=== PATIENT | female | born 1985 | race Caucasian/White ===

== ENCOUNTER 2019-09-17 11:48 | Emergency (ER) | payer BC ==
--- NOTE | 2019-09-17 11:54 | EDM.PDOC ---
ED HPI GENERAL MEDICAL PROBLEM - General Chief Complaint: DATA REPORT ANALYST Problem Stated Complaint: 6-8 WEEKS PREGANNT/BLEEDING/ ABD CRAMPING Time Seen by Provider: 09/17/19 11:50 Source of Information: Reports: Patient History Limitations: Reports: No Limitations - History of Present Illness INITIAL COMMENTS - FREE TEXT/NARRATIVE: HISTORY AND PHYSICAL: History of present illness: Patient is a 34-year-old female who presents to the emergency room today with complaints of vaginal bleeding in . She reports that she has had some irregular periods, last one being June 2018. She did have a confirmed with Dr. Hamilton, and was scheduled to have an ultrasound next week. Over the past 2 days she has had some vaginal bleeding, progressively becoming heavier in the past 24 hours. She does has some generalized low abdominal cramping/discomfort. Patient denies any fever, chills, headache, change in vision, syncope or near syncope. Denies any chest pain, back pain, shortness of breath or cough. Denies any nausea, vomiting, diarrhea, constipation or dysuria. Has not noted any blood in urine or stool. Patient has been eating and drinking appropriately. Denies any recent sexual activity or trauma. 1, Para 0. Review of systems: As per history of present illness and below otherwise all systems reviewed and negative. Past medical history: As per history of present illness and as reviewed below otherwise noncontributory. Surgical history: As per history of present illness and as reviewed below otherwise noncontributory. Social history: See social history for further information Family history: As per history of present illness and as reviewed below otherwise noncontributory. Physical exam: General: Well-developed and well-nourished 34-year-old female. Alert and oriented. Nontoxic appearing and in no acute distress. HEENT: Atraumatic, normocephalic, pupils equal and reactive bilaterally, negative for conjunctival pallor or scleral icterus, mucous membranes moist, neck supple, nontender, trachea midline. No drooling or trismus noted. No meningeal signs. No hot potato voice noted. Lungs: Clear to auscultation, breath sounds equal bilaterally, chest nontender. Heart: S1S2, regular rate and rhythm without overt murmur Abdomen: Soft, nondistended, mild LLQ tenderness with palpation. Negative for masses or hepatosplenomegaly. Negative for costovertebral tenderness. Pelvis: Stable nontender. Skin: Intact, warm, dry. No lesions or rashes noted. Extremities: Atraumatic, moves all extremities per self without difficulty or deficits, negative for cords or calf pain. Neurovascular unremarkable. Neuro: Awake, alert, oriented. Cranial nerves II through XII unremarkable. Cerebellum unremarkable. Motor and sensory unremarkable throughout. Exam nonfocal. Notes: Ultrasound shows a single IUP with a heart rate of 154. No subchorionic hemorrhage is appreciated. Gestational Age 13 weeks 3 days. Lab work is unremarkable with the exception of early sign of UTI, culture has been added. We 'll treat with Keflex. We discussed the importance of following up with her OB/ AGRICULTURE SCIENTIST for reevaluation of vaginal bleeding in . Supportive care measures were reviewed and discussed. Voices understanding and is agreeable to plan of care. Denies any further questions or concerns at this time. Diagnostics: CBC, Quant HCG, 1st Trimester OB, UA Therapeutics: None Prescription: Keflex Impression: Threatened Miscarriage UTI Plan: 1. Please start and/or continue to take your vitamin with folic acid once daily. 2. Pelvic rest until cleared by your OBGYN (no tampons, sex, etc...) 3. Tylenol as needed for pain management. 4. Follow up with your DATA REPORT ANALYST, Dr Clark, for close follow up. Return to the ED as needed and as discussed. Definitive disposition and diagnosis as appropriate pending reevaluation and review of above. - Related Data Allergies Allergy/AdvReac Type Severity Reaction Status Date / Time bupropion HCl Allergy Swelling Verified 09/17/19 11:59 [From Wellbutrin] cinnamon Allergy Facial Verified 09/17/19 11:59 Swelling Home Meds: Home Meds Dextroamphetamine/Amphetamine [Dextroamp-Amphet ER 20 mg Cap] 1 tab PO DAILY 03/31 [History] cephALEXin [Keflex] 500 mg PO BID 5 Days #10 cap 09/17/19 [Rx] Past Medical History - Past Health History Medical/Surgical History: Denies Medical/Surgical History - Infectious Disease History Infectious Disease History: Reports: Chicken Pox Social & Family History - Family History Family Medical History: Noncontributory ED ROS GENERAL - Review of Systems Review Of Systems: Comprehensive ROS is negative, except as noted in HPI. ED EXAM - Physical Exam Exam: See Below (See dictation) Course - Vital Signs Last Recorded V/S: Last Vital Signs Temp 97.8 F 09/17/19 11:58 Pulse 104 H 09/17/19 11:58 Resp 18 09/17/19 11:58 BP 141/87 H 09/17/19 11:58 Pulse Ox 99 09/17/19 11:58 - Orders/Labs/Meds Labs: Laboratory Tests 09/17/19 09/17/19 09/17/19 Range/Units 12:05 13:15 13:15 WBC 10.51 (4.0-11.0) K/uL RBC 4.03 L (4.30-5.90) M/uL Hgb 12.4 (12.0-16.0) g/dL Hct 36.4 (36.0-46.0) % MCV 90.3 (80.0-98.0) fL MCH 30.8 (27.0-32.0) pg MCHC 34.1 (31.0-37.0) g/dL RDW Std Deviation 39.2 (28.0-62.0) fl RDW Coeff of Isabel 12 (11.0-15.0) % Plt Count 321 (150-400) K/uL MPV 8.70 (7.40-12.00) fL Neut % (Auto) 75.5 (48.0-80.0) % Lymph % (Auto) 18.8 (16.0-40.0) % [place] % (Auto) 4.9 (0.0-15.0) % Eos % (Auto) 0.6 (0.0-7.0) % Baso % (Auto) 0.2 (0.0-1.5) % Neut # (Auto) 7.9 H (1.4-5.7) K/uL Lymph # (Auto) 2.0 (0.6-2.4) K/uL [place] # (Auto) 0.5 (0.0-0.8) K/uL Eos # (Auto) 0.1 (0.0-0.7) K/uL Baso # (Auto) 0.0 (0.0-0.1) K/uL Nucleated RBC % 0.0 /100WBC Nucleated RBCs # 0 K/uL HCG, Quant mIU/mL Urine Color YELLOW Urine Appearance CLEAR Urine pH 7.0 (5.0-8.0) Ur Specific Hamilton 1.015 (1.001-1.035) Urine Protein NEGATIVE (NEGATIVE) mg/dL Urine Glucose (UA) NEGATIVE (NEGATIVE) mg/dL Urine Ketones NEGATIVE (NEGATIVE) mg/dL Urine Occult Blood NEGATIVE (NEGATIVE) Urine Nitrite NEGATIVE (NEGATIVE) Urine Bilirubin NEGATIVE (NEGATIVE) Urine Urobilinogen 0.2 (<2.0) EU/dL Ur Leukocyte Esterase NEGATIVE (NEGATIVE) Urine RBC NONE SEEN (0-2/HPF) Urine WBC 0-2 (0-5/HPF) Ur Epithelial Cells OCCASIONAL (NONE-FEW) Urine Bacteria 1+ H (NEGATIVE) Blood Type B POSITIVE 09/17/19 Range/Units 13:15 WBC (4.0-11.0) K/uL RBC (4.30-5.90) M/uL Hgb (12.0-16.0) g/dL Hct (36.0-46.0) % MCV (80.0-98.0) fL MCH (27.0-32.0) pg MCHC (31.0-37.0) g/dL RDW Std Deviation (28.0-62.0) fl RDW Coeff of Isabel (11.0-15.0) % Plt Count (150-400) K/uL MPV (7.40-12.00) fL Neut % (Auto) (48.0-80.0) % Lymph % (Auto) (16.0-40.0) % Raleigh % (Auto) (0.0-15.0) % Eos % (Auto) (0.0-7.0) % Baso % (Auto) (0.0-1.5) % Neut # (Auto) (1.4-5.7) K/uL Lymph # (Auto) (0.6-2.4) K/uL Raleigh # (Auto) (0.0-0.8) K/uL Eos # (Auto) (0.0-0.7) K/uL Baso # (Auto) (0.0-0.1) K/uL Nucleated RBC % /100WBC Nucleated RBCs # K/uL HCG, Quant 75771.0 mIU/mL Urine Color Urine Appearance Urine pH (5.0-8.0) Ur Specific Hamilton (1.001-1.035) Urine Protein (NEGATIVE) mg/dL Urine Glucose (UA) (NEGATIVE) mg/dL Urine Ketones (NEGATIVE) mg/dL Urine Occult Blood (NEGATIVE) Urine Nitrite (NEGATIVE) Urine Bilirubin (NEGATIVE) Urine Urobilinogen (<2.0) EU/dL Ur Leukocyte Esterase (NEGATIVE) Urine RBC (0-2/HPF) Urine WBC (0-5/HPF) Ur Epithelial Cells (NONE-FEW) Urine Bacteria (NEGATIVE) Blood Type Departure - Departure Time of Disposition: 14:20 Disposition: Home, Self-Care 01 Clinical Impression: Threatened miscarriage UTI (urinary tract infection) Qualifiers: Urinary tract infection type: acute cystitis Hematuria presence: without hematuria Qualified Code(s): N30.00 - Acute cystitis without hematuria - Discharge Information Prescriptions: cephALEXin [Keflex] 500 mg PO BID 5 Days #10 cap Instructions: Threatened Miscarriage, [id number] Referrals: Sultana Schultz DO [Primary Care Provider] - Forms: ED Department Discharge Additional Instructions: The following information is given to patients seen in the emergency department who are being discharged to home. This information is to outline your options for follow-up care. We provide all patients seen in our emergency department with a follow-up referral. The need for follow-up, as well as the timing and circumstances, are variable depending upon the specifics of your emergency department visit. If you don't have a primary care physician on staff, we will provide you with a referral. We always advise you to contact your personal physician following an emergency department visit to inform them of the circumstance of the visit and for follow-up with them and/or the need for any referrals to a consulting specialist. The emergency department will also refer you to a specialist when appropriate. This referral assures that you have the opportunity for follow-up care with a specialist. All of these measure are taken in an effort to provide you with optimal care, which includes your follow-up. Under all circumstances we always encourage you to contact your private physician who remains a resource for coordinating your care. When calling for follow-up care, please make the office aware that this follow-up is from your recent emergency room visit. If for any reason you are refused follow-up, please contact the [facility] Emergency Department at and asked to speak to the emergency department charge nurse. [facility] [address] [place] [address] 1. Please start and/or continue to take your vitamin with folic acid once daily. 2. Pelvic rest until cleared by your OBGYN (no tampons, sex, etc...) 3. Tylenol as needed for pain management. 4. Follow up with your DATA REPORT ANALYST, Dr Clark, for close follow up. Return to the ED as needed and as discussed.
[2019-09-17 12:00] VITALS: BP 141/87; PULSE 104
--- NOTE | 2019-09-17 13:21 | US ---
Obstetrical ultrasound: Multiple real-time images were obtained transabdominally. Transvaginal images of cervix are also obtained. Dates: Current ultrasound: BHAVESH 04/15/20, gestational age 13 weeks 3 days Single intrauterine fetus is seen. Amniotic fluid volume is normal. No subchorionic hemorrhage is appreciated. Left ovary appears normal. Right ovary not definitely appreciated. Measurements: [place]-rump length: 68.97 mm - 13 weeks 1 day BPD: 2.10 cm - 13 weeks 3 days Head circumference: 8.44 cm - 13 weeks 5 days Abdominal circumference: 6.86 cm - 13 weeks 4 days Estimated weight: 72 g (0 lbs. 3 oz.) Heart rate: 152 BPM Cervix is closed. Cervical length is 3.0 cm. Impression: 1. Single intrauterine gestation. Dates as noted above. 2. No etiology is identified for the patient's bleeding. Diagnostic code #1 This report was dictated in [place] Standard Time [facility]
== END 2019-09-17 14:31 | disposition home or self-care (01) ==
LOC: MW.ED 11:48
DX: O20.0 Threatened abortion (principal); O23.11 Infections of bladder in pregnancy, first trimester; Z88.8 Allergy status to other drugs, medicaments and biological substances; Z91.018 Allergy to other foods
CPT/HCPCS: 36415; 76801; 76801-26; 81001; 84702; 85025; 86900; 86901; 99283; 99284-25

== ENCOUNTER 2020-03-06 08:14 | Inpatient (IN) | payer BC ==
[2020-03-06] MEDS ORDERED: Methylergonovine 0.2 MG/1 ML Amp IM PRN (09:01)
[2020-03-06] MEDS ORDERED: Sodium Chloride 0.9% 2.5 ML Syringe FLUSH PRN (09:01)
[2020-03-06] MEDS ORDERED: Lidocaine 1% 50 ML MDV INJECT PRN (09:01)
[2020-03-06] MEDS ORDERED: Carboprost Tromethamine 250 MCG/1 ML Amp IM PRN (09:01)
[2020-03-06] MEDS ORDERED: Butorphanol 1 MG/ML SDV IVPUSH PRN (09:01)
[2020-03-06] MEDS ORDERED: Sodium Chloride 0.9% 10 ML SDV IV PRN (09:01)
[2020-03-06] MEDS ORDERED: Tranexamic Acid 1,000 MG in Sodium Chloride 0.9% 100 ML IV PRN (09:01)
[2020-03-06] MEDS ORDERED: Nalbuphine 10 MG/1 ML Vial IVPUSH PRN (09:01)
[2020-03-06] MEDS ORDERED: Water For Irrigation,Sterile 1,000 ML Container IRR PRN (09:01)
[2020-03-06] MEDS ORDERED: Sodium Chloride 0.9% 10 ML Syringe FLUSH PRN (09:01)
[2020-03-06] MEDS ORDERED: Misoprostol 200 MCG Tab PO PRN (09:01)
[2020-03-06] MEDS ORDERED: Oxytocin/0.9 % Sodium Chloride 30 UNIT/500 ML BAG IV SCH (09:15)
[2020-03-06 09:47] LABS: BLOOD UREA NITROGEN,BUN 8 mg/dL (7.0-18.0); CARBON DIOXIDE,CO2 21.6 mmol/L (21.0-32.0); CHLORIDE,CL 105 mmol/L (98-107); GLUCOSE RANDOM 103 mg/dL (74-106); POTASSIUM,K 4.1 mmol/L (3.5-5.1); SODIUM,NA 137 mmol/L (136-145)
[2020-03-06] MEDS ORDERED: Dinoprostone 10 MG Insert VAG ONE (13:18)
[2020-03-07] MEDS: Lactated Ringers 1,000 ML IV SCH ×5 (02:02→17:32)
[2020-03-07] MEDS ORDERED: fentaNYL/Bupivacaine-NS 2 MCG/ML-0.125%/PF 100 ML Bag EPIDUR ONE (02:58)
[2020-03-07] MEDS ORDERED: Ropivacaine 0.2% PF 2 MG/ML 20 ML SDV ONE (02:58)
[2020-03-07] MEDS ORDERED: Oxytocin/0.9 % Sodium Chloride 30 UNIT/500 ML BAG IV SCH (03:30)
--- NOTE | 2020-03-07 03:35 | PCM.PREANE ---
Preanesthetic Assessment - Procedure Proposed Procedure: labor epidural - Anesthesia/Transfusion/Family Hx Anesthesia History: Prior Anesthesia Without Reaction Family History of Anesthesia Reaction: No Transfusion History: No Prior Transfusion(s) - Review of Systems General: No Symptoms Pulmonary: No Symptoms Cardiovascular: No Symptoms Gastrointestinal: No Symptoms Neurological: No Symptoms Other: Reports: None - Physical Assessment Height: 5 ft 3 in Weight: 86.183 kg ASA Class: 2 Mental Status: Alert & Oriented x3 Airway Class: Mallampati = 1 Dentition: Reports: Normal Dentition ROM/Head Extension: Full Lungs: Clear to Auscultation, Normal Respiratory Effort Cardiovascular: Regular Rate, Regular Rhythm - Lab Values: Laboratory Last Values WBC 12.60 K/uL (4.0-11.0) H 03/06/20 09:10 RBC 4.06 M/uL (4.30-5.90) L 03/06/20 09:10 Hgb 12.2 g/dL (12.0-16.0) 03/06/20 09:10 Hct 37.0 % (36.0-46.0) 03/06/20 09:10 MCV 91.1 fL (80.0-98.0) 03/06/20 09:10 MCH 30.0 pg (27.0-32.0) 03/06/20 09:10 MCHC 33.0 g/dL (31.0-37.0) 03/06/20 09:10 RDW Std Deviation 42.6 fl (28.0-62.0) 03/06/20 09:10 RDW Coeff of Isabel 13 % (11.0-15.0) 03/06/20 09:10 Plt Count 260 K/uL (150-400) 03/06/20 09:10 MPV 10.10 fL (7.40-12.00) 03/06/20 09:10 Nucleated RBC % 0.0 /100WBC 03/06/20 09:10 Nucleated RBCs # 0 K/uL 03/06/20 09:10 Sodium 137 mmol/L (136-145) 03/06/20 09:10 Potassium 4.1 mmol/L (3.5-5.1) 03/06/20 09:10 Chloride 105 mmol/L (98-107) 03/06/20 09:10 Carbon Dioxide 21.6 mmol/L (21.0-32.0) 03/06/20 09:10 BUN 8 mg/dL (7.0-18.0) 03/06/20 09:10 Creatinine 0.7 mg/dL (0.6-1.0) 03/06/20 09:10 Est Cr Clr Drug Dosing 91.91 mL/min 03/06/20 09:10 Estimated GFR (MDRD) > 60.0 ml/min 03/06/20 09:10 Glucose 103 mg/dL (74-106) 03/06/20 09:10 Uric Acid 5.3 mg/dL (2.6-7.2) 03/06/20 09:10 Calcium 8.1 mg/dL (8.5-10.1) L 03/06/20 09:10 Total Bilirubin 0.2 mg/dL (0.2-1.0) 03/06/20 09:10 AST 16 IU/L (15-37) 03/06/20 09:10 ALT 19 IU/L (14-63) 03/06/20 09:10 Alkaline Phosphatase 117 U/L (46-116) H 03/06/20 09:10 Total Protein 6.2 g/dL (6.4-8.2) L 03/06/20 09:10 Albumin 2.5 g/dL (3.4-5.0) L 03/06/20 09:10 Globulin 3.7 g/dL (2.6-4.0) 03/06/20 09:10 Albumin/Globulin Ratio 0.7 (0.9-1.6) L 03/06/20 09:10 Urine Color YELLOW 03/06/20 09:45 Urine Appearance SLT CLOUDY 03/06/20 09:45 Urine pH 6.5 (5.0-8.0) 03/06/20 09:45 Ur Specific Omar 1.020 (1.001-1.035) 03/06/20 09:45 Urine Protein NEGATIVE mg/dL (NEGATIVE) 03/06/20 09:45 Urine Glucose (UA) NEGATIVE mg/dL (NEGATIVE) 03/06/20 09:45 Urine Ketones NEGATIVE mg/dL (NEGATIVE) 03/06/20 09:45 Urine Occult Blood LARGE (NEGATIVE) H 03/06/20 09:45 Urine Nitrite NEGATIVE (NEGATIVE) 03/06/20 09:45 Urine Bilirubin NEGATIVE (NEGATIVE) 03/06/20 09:45 Urine Urobilinogen 0.2 EU/dL (<2.0) 03/06/20 09:45 Ur Leukocyte Esterase NEGATIVE (NEGATIVE) 03/06/20 09:45 Ur Random Creatinine 128.7 mg/dL 03/06/20 09:45 U Random Total Protein 30.9 mg/dL (<11.9) H 03/06/20 09:45 Protein/Creatinin Ratio 0.2 03/06/20 09:45 Membrane Rupture POSITIVE 03/06/20 13:10 Blood Type B POSITIVE 03/06/20 09:40 Antibody Screen NEGATIVE 03/06/20 09:40 - Allergies Allergies/Adverse Reactions: Allergies Allergy/AdvReac Type Severity Reaction Status Date / Time bupropion HCl Allergy Swelling Verified 02/21/20 11:03 [From Wellbutrin] cinnamon Allergy Facial Verified 02/21/20 11:03 Swelling - Blood Blood Available: Yes Product(s) Available: PRBC - Acknowledgements Anesthesia Type Planned: Epidural Pt an Appropriate Candidate for the Planned Anesthesia: Yes Alternatives and Risks of Anesthesia Discussed w Pt/Guardian: Yes Pt/Guardian Understands and Agrees with Anesthesia Plan: Yes PreAnesthesia Questionnaire - Past Health History Medical/Surgical History: Denies Medical/Surgical History Genitourinary History: Reports: UTI, Recurrent VEGETABLE GRADER History: Reports: , Other (See Below) Other OB/BYN History: HPV Psychiatric History: Reports: ADD, ADHD, Anxiety - Infectious Disease History Infectious Disease History: Reports: Chicken Pox - Past Surgical History HEENT Surgical History: Reports: LASIK, Oral Surgery - SUBSTANCE USE Smoking Status *Q: Never Smoker Tobacco Use Within Last Twelve Months: No Second Hand Smoke Exposure: No Recreational Drug Use History: No - HOME MEDS Home Medications: Home Meds Pnv No.95/Ferrous Fum/Folic AC [ Caplet] 1 each PO DAILY 03/06/20 [ History] - CURRENT (IN HOUSE) MEDS Current Meds: Current Medications Butorphanol Tartrate (Stadol) 1 mg IVPUSH Q1H PRN PRN Reason: Pain Last Admin: 03/06/20 23:45 Dose: 1 mg Carboprost Tromethamine (Hemabate Ds) 250 mcg IM ASDIRECTED PRN PRN Reason: Post Hemorrhage Tranexamic Acid 1,000 mg/ (Sodium Chloride) 110 mls @ 660 mls/hr IV ONETIME PRN PRN Reason: Bleeding Lactated Ringer's (Ringers, Lactated) 1,000 mls @ 150 mls/hr IV ASDIRECTED JAIME Last Infusion: 03/07/20 03:21 Dose: 150 mls/hr Oxytocin/Sodium Chloride (Oxytocin 30 Unit/500 Ml-Ns) 30 unit in 500 mls @ 999 mls/hr IV TITRATE JAIME Oxytocin/Sodium Chloride (Oxytocin 30 Unit/500 Ml-Ns) 30 unit in 500 mls @ 2 mls/hr IV TITRATE JAIME; Protocol Lidocaine HCl (Xylocaine 1%) 50 ml INJECT ONETIME PRN PRN Reason: Laceration repair Methylergonovine Maleate (Methergine) 0.2 mg IM ASDIRECTED PRN PRN Reason: Post Hemorrhage Misoprostol (Cytotec) 200 mcg PO ONETIME PRN PRN Reason: Post Hemorrhage Nalbuphine HCl (Nubain) 10 mg IVPUSH Q1H PRN PRN Reason: Pain (severe 7-10) Sodium Chloride (Saline Flush) 10 ml FLUSH ASDIRECTED PRN PRN Reason: Keep Vein Open Sodium Chloride (Saline Flush) 2.5 ml FLUSH ASDIRECTED PRN PRN Reason: Keep Vein Open Sodium Chloride (Normal Saline) 10 ml IV ASDIRECTED PRN PRN Reason: IV Use Sterile Water (Sterile Water For Irrigation) 1,000 ml IRR ASDIRECTED PRN PRN Reason: delivery Discontinued Medications Dinoprostone (Cervidil) 10 mg VAG ONETIME ONE Stop: 03/06/20 13:19 Last Admin: 03/06/20 13:34 Dose: 10 mg Ropivacaine (Naropin 0.2%) Confirm Administered Dose 20 ml .ROUTE .STK-MED ONE Stop: 03/07/20 02:59 Last Admin: 03/07/20 03:31 Dose: Not Given
[2020-03-07] MEDS ORDERED: ePHEDrine 50 MG/ML SDV ONE (03:46)
--- NOTE | 2020-03-07 14:50 | PCM.SN.2 ---
- Free Text/Narrative Note: 03/07/2020 at 1352: Called to OB LDR 1 for labor epidural pump infusion bag empty. Replaced infusion with new 0.125% Bupivacaine + Fentanyl 2mcg/ml 100 ml bag and continued previous settings of 8 ml per hour continuous infusion and 6 ml bolus every 10 minutes One hour lock out rate is 26 ml/hour. Patient currently dilated to 2cm, comfortable, and is able to move both legs without issues. No further issues or concerns at this time.
[2020-03-07] MEDS ORDERED: Ondansetron 4 MG/2 ML SDV ONE (18:12)
[2020-03-07] MEDS ORDERED: Morphine 4 MG/ML Syringe ONE (20:17)
[2020-03-07] MEDS ORDERED: Morphine 2 MG/ML Syringe ONE (20:17)
[2020-03-07] MEDS ORDERED: Morphine 10 MG/ML Syringe IM ONE (20:20)
[2020-03-07] MEDS ORDERED: Bisacodyl 10 MG Supp RECTAL PRN (20:51)
[2020-03-07] MEDS ORDERED: Acetaminophen 500 MG Tab PO PRN ×2 (20:51)
[2020-03-07] MEDS ORDERED: Ibuprofen 400 MG Tab PO PRN (20:51)
[2020-03-07] MEDS ORDERED: Witch Hazel Medicated Pads 40/Jar TOP PRN (20:51)
[2020-03-07] MEDS ORDERED: oxyCODONE 5 MG Tab PO PRN (20:51)
[2020-03-07] MEDS ORDERED: Benzocaine/Menthol 20%-0.5% Spray 78 GM Cannister TOP PRN (20:51)
[2020-03-07] MEDS ORDERED: Lanolin 100% Cream 7 GM Tube TOP PRN (20:51)
--- NOTE | 2020-03-07 21:07 | PCM.DEL ---
L & D Note - General Info Date of Service: 03/07/20 Mother's Due Date: 03/23/20 - Delivery Note Labor: Augmented by Oxytocin Cervical Ripening Method: Other (see below) (cervidil) Delivery Outcome: Livebirth Infant Delivery Method: Spontaneous Vaginal Delivery-Single Presentation: Left Occiput Anterior (JANELLE) Nuchal Cord: None Anesthesia Type: Epidural Anesthetic: Lidocaine (Xylocaine) 1% Plain Amniotic Fluid Description: Clear Episiotomy Type: None Laceration: 1st Degree, Periurethral Suture type: Other (monocryl) Suture size: 2-0 Cord: 3 Vessels Estimated Blood Loss: 200 Resuscitation Needed: No Score 1 min: 8 Score 5 min: 9 Delivery Comments (Free Text/Narrative):: Live male delivered at 7.57pm . weight 3060g , 8/9 - General Info Date of Service: 03/07/20 - Patient Data Weight - Most Recent: 86.183 kg Med Orders - Current: Current Medications Acetaminophen (Tylenol Extra Strength) 500 mg PO Q4H PRN PRN Reason: Pain Acetaminophen (Tylenol Extra Strength) 1,000 mg PO Q4H PRN PRN Reason: Pain Benzocaine/Menthol (Dermoplast Pain Relief 20%-0.5% Fleming) 78 gm TOP ASDIRECTED PRN PRN Reason: Perineal Comfort Measure Bisacodyl (Dulcolax) 10 mg RECTAL ONETIME PRN PRN Reason: Constipation Butorphanol Tartrate (Stadol) 1 mg IVPUSH Q1H PRN PRN Reason: Pain Last Admin: 03/06/20 23:45 Dose: 1 mg Carboprost Tromethamine (Hemabate Ds) 250 mcg IM ASDIRECTED PRN PRN Reason: Post Hemorrhage Docusate Sodium (Colace) 100 mg PO BID PRN PRN Reason: Constipation Emollient Ointment (Lansinoh Hpa) 0 gm TOP ASDIRECTED PRN PRN Reason: Sore Nipples Tranexamic Acid 1,000 mg/ (Sodium Chloride) 110 mls @ 660 mls/hr IV ONETIME PRN PRN Reason: Bleeding Lactated Ringer's (Ringers, Lactated) 1,000 mls @ 150 mls/hr IV ASDIRECTED JAIME Last Admin: 03/07/20 17:32 Dose: 150 mls/hr Oxytocin/Sodium Chloride (Oxytocin 30 Unit/500 Ml-Ns) 30 unit in 500 mls @ 999 mls/hr IV TITRATE JAIME Oxytocin/Sodium Chloride (Oxytocin 30 Unit/500 Ml-Ns) 30 unit in 500 mls @ 2 mls/hr IV TITRATE JAIME; Protocol Last Infusion: 03/07/20 17:45 Dose: 18 munits/min, 18 mls/hr Ibuprofen (Motrin) 400 mg PO Q4H PRN PRN Reason: Pain Ibuprofen (Motrin) 800 mg PO Q6H PRN PRN Reason: Pain Lidocaine HCl (Xylocaine 1%) 50 ml INJECT ONETIME PRN PRN Reason: Laceration repair Methylergonovine Maleate (Methergine) 0.2 mg IM ASDIRECTED PRN PRN Reason: Post Hemorrhage Misoprostol (Cytotec) 200 mcg PO ONETIME PRN PRN Reason: Post Hemorrhage Nalbuphine HCl (Nubain) 10 mg IVPUSH Q1H PRN PRN Reason: Pain (severe 7-10) Oxycodone HCl (Oxycodone) 5 mg PO Q2H PRN PRN Reason: Pain Sodium Chloride (Saline Flush) 10 ml FLUSH ASDIRECTED PRN PRN Reason: Keep Vein Open Sodium Chloride (Saline Flush) 2.5 ml FLUSH ASDIRECTED PRN PRN Reason: Keep Vein Open Sodium Chloride (Normal Saline) 10 ml IV ASDIRECTED PRN PRN Reason: IV Use Sterile Water (Sterile Water For Irrigation) 1,000 ml IRR ASDIRECTED PRN PRN Reason: delivery Witch Nell (Tucks) 1 pad TOP ASDIRECTED PRN PRN Reason: comfort care Discontinued Medications Dinoprostone (Cervidil) 10 mg VAG ONETIME ONE Stop: 03/06/20 13:19 Last Admin: 03/06/20 13:34 Dose: 10 mg Ephedrine Sulfate (Ephedrine Sulfate) Confirm Administered Dose 50 mg .ROUTE .STK-MED ONE Stop: 03/07/20 03:47 Last Admin: 03/07/20 04:52 Dose: Not Given Fentanyl/Bupivacaine HCl (Tullvczi-Ywltv-Nj 2 Mcg/Ml-0.125%) 100 ml EPIDUR .STK -MED ONE Stop: 03/07/20 02:59 Morphine Sulfate (Morphine) Confirm Administered Dose 2 mg .ROUTE .STK-MED ONE Stop: 03/07/20 20:18 Morphine Sulfate (Morphine) Confirm Administered Dose 4 mg .ROUTE .STK-MED ONE Stop: 03/07/20 20:18 Ondansetron HCl (Zofran) Confirm Administered Dose 4 mg .ROUTE .STK-MED ONE Stop: 03/07/20 18:13 Last Admin: 03/07/20 18:17 Dose: 4 mg Ropivacaine (Naropin 0.2%) Confirm Administered Dose 20 ml .ROUTE .STK-MED ONE Stop: 03/07/20 02:59 Last Admin: 03/07/20 03:31 Dose: Not Given - Problem List & Annotations (1) Vaginal delivery SNOMED Code(s): 567772877 Code(s): O80 - ENCOUNTER FOR FULL-TERM UNCOMPLICATED DELIVERY Status: Acute Current Visit: Yes - Problem List Review Problem List Initiated/Reviewed/Updated: Yes - My Orders Last 24 Hours: My Active Orders 03/07/20 20:51 Patient Status [ADT] Routine May Shower [RC] ASDIRECTED Up ad Whitney [RC] ASDIRECTED Vital Signs [RC] PER UNIT ROUTINE Acetaminophen [Tylenol Extra Strength] 1,000 mg PO Q4H PRN Acetaminophen [Tylenol Extra Strength] 500 mg PO Q4H PRN Benzocaine/Menthol [Dermoplast Pain Relief 20%-0.5% Fleming] 78 gm TOP ASDIRECTED PRN Docusate Sodium [Colace] 100 mg PO BID PRN Ibuprofen [Motrin] 400 mg PO Q4H PRN Ibuprofen [Motrin] 800 mg PO Q6H PRN Lanolin [Lansinoh HPA] See Dose Instructions TOP ASDIRECTED PRN bisacodyL [Dulcolax] 10 mg RECTAL ONETIME PRN oxyCODONE 5 mg PO Q2H PRN witch Nell [Tucks] 1 pad TOP ASDIRECTED PRN Assess Lochia [WOMSER] Per Unit Routine Assess Uterine Involution [WOMSER] Per Unit Routine Peripheral IV Discontinue [OM.PC] Routine Resuscitation Status Routine 03/08/20 05:11 HEMOGLOBIN/HEMATOCRIT,HH [HEME] Timed
[2020-03-07] MEDS ORDERED: Oxytocin 10 Units/1 ML SDV IM ONE (21:57)
[2020-03-07] MEDS: Docusate Sodium 100 MG Cap PO PRN (22:38)
[2020-03-08] MEDS: Ibuprofen 800 MG Tab PO PRN ×3 (04:55→20:04)
--- NOTE | 2020-03-08 07:45 | PCM48HPAN ---
Post Anesthesia Note - EVALUATION WITHIN 48HRS OF ANESTHETIC Vital Signs in Normal Range: Yes Patient Participated in Evaluation: Yes Respiratory Function Stable: Yes Airway Patent: Yes Cardiovascular Function Stable: Yes Hydration Status Stable: Yes Pain Control Satisfactory: Yes Nausea and Vomiting Control Satisfactory: Yes Mental Status Recovered: Yes Vital Signs: Last Vital Signs Temp 36.4 C 03/08/20 04:35 Pulse 101 H 03/08/20 04:35 Resp 16 03/08/20 04:35 BP 135/71 03/08/20 04:35 Pulse Ox 94 L 03/08/20 04:35 - COMMENTS/OBSERVATIONS Free Text/Narrative:: Patient sitting up in bed doing well. No anesthesia complications or concerns noted.
--- NOTE | 2020-03-08 09:43 | OR ---
SURGEON: CORA FRANCO DATE OF PROCEDURE: 03/07/2020 PREOPERATIVE DIAGNOSIS: A 35-year-old, G1, P0, at 37 weeks 5 days, admitted for induction of labor secondary to preeclampsia and premature rupture of membranes. POSTOPERATIVE DIAGNOSIS: A 35-year-old, G1, P0, at 37 weeks 5 days, admitted for induction of labor secondary to preeclampsia and premature rupture of membranes. PPH PROCEDURE: Normal spontaneous vaginal delivery Repair of 1st degree perineal laceration Administration of Uterotonic ESTIMATED BLOOD LOSS: 700. IV FLUID: Pitocin running. NOTES AND FINDINGS: Live male delivered at 1957. score was 8 and 9. Weight is 3060 g. After delivery of baby, Uterine atony with increased bleeding was noted. As a result of this, tranexamic acid was given. IM 20units Pitocin was given in addition to IV pitocin . Hemabate was also given. BRIEF HISTORY: She is a 35-year-old, G1, P0, low-risk care, although she had gestational proteinuria. She presented to L & D triage complaining of bleeding.she was examined. It was noted that she was ruptured. She was admitted for IOL.Cervidil was placed. After Cervidil, she was started on Pitocin. After the patient received Pitocin, I examined the patient. She was noted to be 1 to 2 cm, 60% effaced. I did an AROM which was clear fluid. The patient made cervical change she became fully dilated. She had intermittent Cat 2 FHT which resolved with intrauterine maneuvers DESCRIPTION OF PROCEDURE: With the patient being fully dilated, she was encouraged to push. She delivered the head subsequently by the anterior and posterior shoulder. The body of the infant was delivered. Infant was placed on maternal abdomen. Delayed cord clamping was observed. Placenta was delivered without any difficulty. Increased bleeding was noted to be about 700 mL. and bimanual massage was done. Pitocin was given. Hemabate was given. Tranexamic acid was given. Then, bleeding was noted to be normal. A first-degree laceration was noted and bilateral labial laceration was noted. The first degree was sutured with 2-0 Monocryl and the left labia had one stitch of 2-0 Monocryl. Perineum was inspected and noted to be hemostatic. All instrument and pad counts were correct x2. The patient was left in Labor and Delivery room in stable condition. CARLOS LYN /[id number] MTDD
[2020-03-08] MEDS: Docusate Sodium 100 MG Cap PO PRN (11:32)
--- NOTE | 2020-03-08 12:06 | PCM.PNPP ---
- General Info Date of Service: 03/08/20 Subjective Update: 35yo P1 PPD1 Functional Status: Reports: Pain Controlled, Tolerating Diet, Ambulating, Urinating - Review of Systems General: Reports: No Symptoms HEENT: Reports: No Symptoms Pulmonary: Reports: No Symptoms Cardiovascular: Reports: No Symptoms Gastrointestinal: Reports: No Symptoms Genitourinary: Reports: No Symptoms Musculoskeletal: Reports: No Symptoms Skin: Reports: No Symptoms Neurological: Reports: No Symptoms - General Info Date of Service: 03/08/20 - Patient Data Vital Signs - Most Recent: Last Vital Signs Temp 36.5 C 03/08/20 08:48 Pulse 65 03/08/20 08:48 Resp 17 03/08/20 08:48 BP 115/67 03/08/20 08:48 Pulse Ox 97 03/08/20 08:48 Weight - Most Recent: 86.183 kg Lab Results - Last 24 Hours: Laboratory Results - last 24 hr 03/08/20 Range/Units 06:15 Hgb 10.4 L (12.0-16.0) g/dL Hct 31.1 L (36.0-46.0) % Med Orders - Current: Current Medications Acetaminophen (Tylenol Extra Strength) 500 mg PO Q4H PRN PRN Reason: Pain Acetaminophen (Tylenol Extra Strength) 1,000 mg PO Q4H PRN PRN Reason: Pain Benzocaine/Menthol (Dermoplast Pain Relief 20%-0.5% Landrum) 0 gm TOP ASDIRECTED PRN PRN Reason: Perineal Comfort Measure Last Admin: 03/07/20 22:34 Dose: 78 gm Bisacodyl (Dulcolax) 10 mg RECTAL ONETIME PRN PRN Reason: Constipation Butorphanol Tartrate (Stadol) 1 mg IVPUSH Q1H PRN PRN Reason: Pain Last Admin: 03/06/20 23:45 Dose: 1 mg Carboprost Tromethamine (Hemabate Ds) 250 mcg IM ASDIRECTED PRN PRN Reason: Post Hemorrhage Last Admin: 03/07/20 21:08 Dose: 250 mcg Docusate Sodium (Colace) 100 mg PO BID PRN PRN Reason: Constipation Last Admin: 03/08/20 11:32 Dose: 100 mg Emollient Ointment (Lansinoh Hpa) 0 gm TOP ASDIRECTED PRN PRN Reason: Sore Nipples Last Admin: 03/07/20 22:35 Dose: 7 gm Tranexamic Acid 1,000 mg/ (Sodium Chloride) 110 mls @ 660 mls/hr IV ONETIME PRN PRN Reason: Bleeding Last Admin: 03/07/20 20:12 Dose: 660 mls/hr Lactated Ringer's (Ringers, Lactated) 1,000 mls @ 150 mls/hr IV ASDIRECTED JAIME Last Admin: 03/07/20 17:32 Dose: 150 mls/hr Oxytocin/Sodium Chloride (Oxytocin 30 Unit/500 Ml-Ns) 30 unit in 500 mls @ 999 mls/hr IV TITRATE JAIME Last Admin: 03/07/20 20:05 Dose: 999 mls/hr Oxytocin/Sodium Chloride (Oxytocin 30 Unit/500 Ml-Ns) 30 unit in 500 mls @ 2 mls/hr IV TITRATE JAIME; Protocol Last Infusion: 03/07/20 17:45 Dose: 18 munits/min, 18 mls/hr Ibuprofen (Motrin) 400 mg PO Q4H PRN PRN Reason: Pain Ibuprofen (Motrin) 800 mg PO Q6H PRN PRN Reason: Pain Last Admin: 03/08/20 11:32 Dose: 800 mg Lidocaine HCl (Xylocaine 1%) 50 ml INJECT ONETIME PRN PRN Reason: Laceration repair Last Admin: 03/07/20 20:20 Dose: 50 ml Methylergonovine Maleate (Methergine) 0.2 mg IM ASDIRECTED PRN PRN Reason: Post Hemorrhage Misoprostol (Cytotec) 200 mcg PO ONETIME PRN PRN Reason: Post Hemorrhage Nalbuphine HCl (Nubain) 10 mg IVPUSH Q1H PRN PRN Reason: Pain (severe 7-10) Oxycodone HCl (Oxycodone) 5 mg PO Q2H PRN PRN Reason: Pain Sodium Chloride (Saline Flush) 10 ml FLUSH ASDIRECTED PRN PRN Reason: Keep Vein Open Sodium Chloride (Saline Flush) 2.5 ml FLUSH ASDIRECTED PRN PRN Reason: Keep Vein Open Sodium Chloride (Normal Saline) 10 ml IV ASDIRECTED PRN PRN Reason: IV Use Sterile Water (Sterile Water For Irrigation) 1,000 ml IRR ASDIRECTED PRN PRN Reason: delivery Last Admin: 03/07/20 19:58 Dose: 1,000 ml Jairo Camejo (Roryckame) 1 pad TOP ASDIRECTED PRN PRN Reason: comfort care Discontinued Medications Dinoprostone (Cervidil) 10 mg VAG ONETIME ONE Stop: 03/06/20 13:19 Last Admin: 03/06/20 13:34 Dose: 10 mg Ephedrine Sulfate (Ephedrine Sulfate) Confirm Administered Dose 50 mg .ROUTE .STK-MED ONE Stop: 03/07/20 03:47 Last Admin: 03/07/20 04:52 Dose: Not Given Fentanyl/Bupivacaine HCl (Rzauhotf-Zkdmh-Cx 2 Mcg/Ml-0.125%) 100 ml EPIDUR .STK -MED ONE Stop: 03/07/20 02:59 Morphine Sulfate (Morphine) Confirm Administered Dose 2 mg .ROUTE .STK-MED ONE Stop: 03/07/20 20:18 Last Admin: 03/07/20 20:20 Dose: 2 mg Morphine Sulfate (Morphine) Confirm Administered Dose 4 mg .ROUTE .STK-MED ONE Stop: 03/07/20 20:18 Last Admin: 03/07/20 20:20 Dose: 4 mg Morphine Sulfate (Morphine) 6 mg IM ONETIME ONE Stop: 03/07/20 20:21 Ondansetron HCl (Zofran) Confirm Administered Dose 4 mg .ROUTE .STK-MED ONE Stop: 03/07/20 18:13 Last Admin: 03/07/20 18:17 Dose: 4 mg Oxytocin (Pitocin) 20 unit IM ONETIME ONE Stop: 03/07/20 21:58 Last Admin: 03/07/20 20:08 Dose: 20 unit Ropivacaine (Naropin 0.2%) Confirm Administered Dose 20 ml .ROUTE .STK-MED ONE Stop: 03/07/20 02:59 Last Admin: 03/07/20 03:31 Dose: Not Given - Interaction Support Person: - Recovery Exam Fundal Tone: Firm Fundal Level: At Umbilicus Fundal Placement: Midline Lochia Amount: Scant Lochia Color: Rubra/Red Perineum Description: Intact, Minimal Bruising/Swelling Episiotomy/Laceration: Not Approximated Bladder Status: Nonpalpable Urinary Elimination: Voided - Exam General: Alert HEENT: Pupils Equal Neck: Supple Lungs: Clear to Auscultation Cardiovascular: Regular Rate, Regular Rhythm GI/Abdominal Exam: Normal Bowel Sounds Extremities: Normal Inspection Skin: Warm Neurological: No New Focal Deficit - Problem List & Annotations (1) Vaginal delivery SNOMED Code(s): 456578608 Code(s): O80 - ENCOUNTER FOR FULL-TERM UNCOMPLICATED DELIVERY Status: Acute Current Visit: Yes - Problem List Review Problem List Initiated/Reviewed/Updated: Yes - My Orders Last 24 Hours: My Active Orders 03/07/20 20:51 Patient Status [ADT] Routine Vital Signs [RC] PER UNIT ROUTINE Acetaminophen [Tylenol Extra Strength] 1,000 mg PO Q4H PRN Acetaminophen [Tylenol Extra Strength] 500 mg PO Q4H PRN Benzocaine/Menthol [Dermoplast Pain Relief 20%-0.5% Landrum] 0 gm TOP ASDIRECTED PRN Docusate Sodium [Colace] 100 mg PO BID PRN Ibuprofen [Motrin] 400 mg PO Q4H PRN Ibuprofen [Motrin] 800 mg PO Q6H PRN Lanolin [Lansinoh HPA] See Dose Instructions TOP ASDIRECTED PRN bisacodyL [Dulcolax] 10 mg RECTAL ONETIME PRN oxyCODONE 5 mg PO Q2H PRN witch Michelle [Tucks] 1 pad TOP ASDIRECTED PRN Assess Lochia [WOMSER] Per Unit Routine Assess Uterine Involution [WOMSER] Per Unit Routine Peripheral IV Discontinue [OM.PC] Routine Resuscitation Status Routine - Assessment Assessment:: 35yo P1 s/p PPD 1, had PPH , Todays's h/h 08/12 BPs reviewed normal Normal lochia ambulating Tolerating regular - Plan Plan:: Discharge home to Monitor BP at home BP check in 1 week
[2020-03-08 19:58] VITALS: BP 123/80; PULSE 89
== END 2020-03-08 22:35 | disposition home or self-care (01) | DRG 560 ==
LOC: MW.OBCHECK 08:14 → MW.OB 08:40 → MW.OBCHECK 09:00 → MW.OB 09:01 → OBSVTOIN 03-07 20:51 → MW.OB 03-08 01:58
PROVIDERS: ADMIT Obstetrics & Gynecology; ATTEND Obstetrics & Gynecology
PROC: 10E0XZZ Delivery of Products of Conception, External Approach (ICD-10-PCS; principal; 2020-03-07)
PROC: 10907ZC Drainage of Amniotic Fluid, Therapeutic from Products of Conception, Via Natural or Artificial Opening (ICD-10-PCS; 2020-03-07)
PROC: 0HQ9XZZ Repair Perineum Skin, External Approach (ICD-10-PCS; 2020-03-07)
PROC: 10H07YZ Insertion of Other Device into Products of Conception, Via Natural or Artificial Opening (ICD-10-PCS; 2020-03-07)
PROC: 3E0R3BZ Introduction of Anesthetic Agent into Spinal Canal, Percutaneous Approach (ICD-10-PCS; 2020-03-07)
DX: O14.04 Mild to moderate pre-eclampsia, complicating childbirth (principal); O70.0 First degree perineal laceration during delivery; O42.92 Full-term premature rupture of membranes, unspecified as to length of time between rupture and onset of labor; Z3A.37 37 weeks gestation of pregnancy; Z37.0 Single live birth
CPT/HCPCS: 01967; 36415; 51702; 59025; 59409; 80053; 81003; 82570; 84112; 84156; 84550; 85014; 85018; 85027; 86592; 86593; 86850; 86900; 86901; A9270-GY; J0595; J2001; J2270; J2405; J2590; J2795; J7050; J7120

== ENCOUNTER 2022-06-04 09:18 | Day surgery (SDC) | payer BC ==
[~2022-06-04 09:18] MED LIST: Albuterol 0.083% 2.5 MG/3 ML Neb Soln NEB PRN; Doxycycline 200 MG in Sodium Chloride 0.9% 100 ML IV SCH; Doxycycline 200 MG in Sodium Chloride 0.9% 250 ML IV SCH; HYDROmorphone 1 MG/ML Syringe IVPUSH PRN; Lactated Ringers 1,000 ML IV SCH; Metoclopramide 10 MG/2 ML SDV IVPUSH PRN; Morphine 4 MG/ML VIAL IVPUSH PRN; Naloxone 0.4 MG/ML SDV IVPUSH PRN; Ondansetron 4 MG/2 ML SDV IVPUSH PRN; fentaNYL 50 MCG/ML SDV IVPUSH PRN
[2022-06-04] MEDS ORDERED: Propofol 200 MG/20 ML SDV ONE (11:12)
[2022-06-04] MEDS ORDERED: fentaNYL 250 MCG/5 ML SDV ONE (11:14)
[2022-06-04] MEDS ORDERED: Ondansetron 4 MG/2 ML SDV ONE ×2 (11:44→11:58)
[2022-06-04] MEDS ORDERED: Ketorolac 30 MG/ML SDV ONE (11:44)
[2022-06-04] MEDS ORDERED: Dexamethasone 4 MG/ML 5 ML MDV ONE (11:44)
[2022-06-04] MEDS ORDERED: Methylergonovine 0.2 MG/1 ML Amp ONE (11:55)
[2022-06-04] MEDS ORDERED: Acetaminophen/HYDROcodone 325-5 MG Tab PO PRN (12:23)
[2022-06-04 12:49] VITALS: PULSE 81
[2022-06-04 13:04] VITALS: BP 118/70
== END 2022-06-04 13:35 | disposition home or self-care (01) ==
LOC: MW.SDS 09:18
PROVIDERS: ATTEND Obstetrics & Gynecology
DX: O02.1 Missed abortion (principal); F41.9 Anxiety disorder, unspecified; F90.9 Attention-deficit hyperactivity disorder, unspecified type; Z91.018 Allergy to other foods; Z98.890 Other specified postprocedural states; Z88.8 Allergy status to other drugs, medicaments and biological substances; Z79.899 Other long term (current) drug therapy
CPT/HCPCS: 36415; 59820; 80053; 85027; 86850; 86900; 86901; J1100; J1885; J2210; J2405; J2704; J3010; J3490; J7050; J7120; 01965

== ENCOUNTER 2023-05-13 15:40 | Inpatient (IN) | payer OTHER ==
[2023-05-13 15:57] LABS: A/G RATIO 0.7 (0.9-1.6); ALANINE AMINOTRANSFERASE,ALT 14 IU/L (14-63); ALBUMIN 2.6 g/dL (3.4-5.0); ALKALINE PHOSPHATASE 140 U/L (46-116); ASPARTATE AMNIOTRANSFERASE,AST 16 IU/L (15-37); BILIRUBIN TOTAL 0.2 mg/dL (0.2-1.0); BLOOD UREA NITROGEN,BUN 9 mg/dL (7.0-18.0); CALCIUM 8.4 mg/dL (8.5-10.1); CARBON DIOXIDE,CO2 24.7 mmol/L (21.0-32.0); CHLORIDE,CL 106 mmol/L (98-107); CREATININE 0.6 mg/dL (0.6-1.0); ESTIMATED GFR 117 mL/min (>60); GLUCOSE RANDOM 90 mg/dL (74-106); POTASSIUM,K 4.2 mmol/L (3.5-5.1); PROTEIN TOTAL,TP 6.2 g/dL (6.4-8.2); SODIUM,NA 140 mmol/L (136-145); URIC ACID 6.1 mg/dL (2.6-7.2)
[2023-05-13 15:59] LABS: HEMOGLOBIN 12.4 g/dL (12.0-16.0); MEAN CORPUSCULAR HEMOGLOBIN 29.8 pg (27.0-32.0); MEAN CORPUSCULAR HGB CONC 33.5 g/dL (31.0-37.0); MEAN CORPUSCULAR VOLUME 88.9 fL (80.0-98.0); MEAN PLATELET VOLUME 10.5 fL (7.40-12.00); RED BLOOD CELL COUNT 4.16 M/uL (4.30-5.90); WHITE BLOOD CELL COUNT,WBC 7.54 K/uL (4.0-11.0)
[2023-05-13 16:04] LABS: PROTEIN,URINE RANDOM 50.1 mg/dL (<11.9)
[2023-05-13 16:06] LABS: CREATININE,URINE RAND 322.4 mg/dL; PROTEIN CREATININE RATIO,URINE 0.2
[2023-05-13] MEDS ORDERED: Sodium Chloride 0.9% 10 ML Syringe FLUSH PRN (19:09)
[2023-05-13] MEDS ORDERED: Water For Irrigation,Sterile 1,000 ML Container IRR PRN (19:09)
[2023-05-13] MEDS ORDERED: Sodium Chloride 0.9% 2.5 ML Syringe FLUSH PRN (19:09)
[2023-05-13] MEDS ORDERED: Sodium Chloride 0.9% 20 ML SDV IV PRN (19:09)
[2023-05-13] MEDS ORDERED: Tranexamic Acid 1,000 MG in Sodium Chloride 0.9% 100 ML IV PRN (19:09)
[2023-05-13] MEDS ORDERED: Lidocaine 1% 50 ML MDV INJECT PRN (19:09)
[2023-05-13] MEDS ORDERED: Methylergonovine 0.2 MG/1 ML Amp IM PRN (19:09)
[2023-05-13] MEDS ORDERED: Carboprost Tromethamine 250 MCG/1 mL Vial IM PRN (19:09)
[2023-05-13] MEDS ORDERED: Misoprostol 200 MCG Tab PO PRN (19:09)
[2023-05-13] MEDS ORDERED: Terbutaline 1 MG/ML SDV SUBCUT PRN (19:13)
[2023-05-13] MEDS ORDERED: Misoprostol 25 MCG (1/4 of 100 MCG) Tab VAG PRN ×2 (19:13)
[2023-05-13] MEDS ORDERED: Oxytocin/0.9 % Sodium Chloride 30 UNIT/500 ML BAG IV SCH ×2 (19:15)
[2023-05-13] MEDS: Lactated Ringers 1,000 ML IV SCH (19:50)
[2023-05-13 20:16] LABS: HEMATOCRIT 37.1 % (36.0-46.0); HEMOGLOBIN 12.7 g/dL (12.0-16.0); MEAN CORPUSCULAR HEMOGLOBIN 30.1 pg (27.0-32.0); MEAN CORPUSCULAR HGB CONC 34.2 g/dL (31.0-37.0); MEAN CORPUSCULAR VOLUME 87.9 fL (80.0-98.0); MEAN PLATELET VOLUME 10.4 fL (7.40-12.00); RED BLOOD CELL COUNT 4.22 M/uL (4.30-5.90); WHITE BLOOD CELL COUNT,WBC 8.24 K/uL (4.0-11.0)
[2023-05-14] MEDS ORDERED: Ropivacaine/PF 400 MG/200 ML PCA ONE (03:16)
[2023-05-14] MEDS ORDERED: Phenylephrine HCl 0.5 MG/5 ML AMP ONE (03:16)
[2023-05-14] MEDS ORDERED: ePHEDrine 50 MG/ML SDV IVPUSH PRN ×2 (03:28)
[2023-05-14] MEDS ORDERED: Ropivacaine HCl/PF 400 MG in Premix Bag 1 BAG EPIDUR SCH (03:30)
[2023-05-14] MEDS: Phenylephrine HCl 0.5 MG/5 ML AMP IVPUSH PRN ×2 (03:57→05:12)
[2023-05-14] MEDS: Lactated Ringers 1,000 ML IV SCH (04:00)
[2023-05-14] MEDS ORDERED: oxyCODONE 5 MG Tab PO PRN (07:16)
[2023-05-14] MEDS ORDERED: Witch Hazel Medicated Pads 40/Jar TOP PRN (07:16)
[2023-05-14] MEDS ORDERED: Acetaminophen 500 MG Tab PO PRN (07:16)
[2023-05-14] MEDS ORDERED: Ibuprofen 400 MG Tab PO PRN (07:16)
[2023-05-14] MEDS ORDERED: Benzocaine/Menthol 20%-0.5% Spray 78 GM Cannister TOP PRN (07:16)
[2023-05-14] MEDS ORDERED: Bisacodyl 10 MG Supp RECTAL PRN (07:16)
[2023-05-14] MEDS ORDERED: Lanolin 100% Cream 7 GM Tube TOP PRN (07:16)
[2023-05-14] MEDS ORDERED: Docusate Sodium 100 MG Cap PO PRN (07:16)
[2023-05-14 07:23] LABS: PH,UMBILICAL ARTERIAL 7.288 (7.18-7.38); PH,UMBILICAL VENOUS 7.356 (7.25-7.45)
[2023-05-14] MEDS: Ibuprofen 800 MG Tab PO PRN (11:42)
[2023-05-14] MEDS: Acetaminophen 500 MG Tab PO PRN (15:21)
[2023-05-14] MEDS: Labetalol 100 MG Tab PO SCH ×2 (20:18→20:28)
[2023-05-15] MEDS: Ibuprofen 800 MG Tab PO PRN (01:47)
[2023-05-15] MEDS: Acetaminophen 500 MG Tab PO PRN (04:39)
[2023-05-15 06:55] LABS: HEMATOCRIT 31.8 % (36.0-46.0); HEMOGLOBIN 10.6 g/dL (12.0-16.0)
[2023-05-15] MEDS: Labetalol 100 MG Tab PO SCH (09:48)
[2023-05-15 09:49] VITALS: BP 121/82; PULSE 75
== END 2023-05-15 13:07 | disposition home or self-care (01) | DRG 807 ==
LOC: MW.NPGPWH 15:40 → MW.OB 17:46 → OBSVTOIN 05-14 06:41 → MW.OB 05-14 11:30
PROVIDERS: ADMIT Obstetrics & Gynecology; ATTEND Obstetrics & Gynecology
PROC: 10E0XZZ Delivery of Products of Conception, External Approach (ICD-10-PCS; principal; 2023-05-14)
PROC: 0HQ9XZZ Repair Perineum Skin, External Approach (ICD-10-PCS; 2023-05-14)
PROC: 3E0R3BZ Introduction of Anesthetic Agent into Spinal Canal, Percutaneous Approach (ICD-10-PCS; 2023-05-14)
PROC: 00HU33Z Insertion of Infusion Device into Spinal Canal, Percutaneous Approach (ICD-10-PCS; 2023-05-14)
PROC: 3E033VJ Introduction of Other Hormone into Peripheral Vein, Percutaneous Approach (ICD-10-PCS; 2023-05-14)
PROC: 3E0P7VZ Introduction of Hormone into Female Reproductive, Via Natural or Artificial Opening (ICD-10-PCS; 2023-05-14)
DX: O14.04 Mild to moderate pre-eclampsia, complicating childbirth (principal); O12.24 Gestational edema with proteinuria, complicating childbirth; Z37.0 Single live birth; Z3A.28 28 weeks gestation of pregnancy; O70.0 First degree perineal laceration during delivery; Z88.8 Allergy status to other drugs, medicaments and biological substances; Z91.018 Allergy to other foods
CPT/HCPCS: 36415; 51702; 59025; 59409; 80053; 82570; 82803; 84156; 84550; 85014; 85018; 85027; 86592; 86850; 86900; 86901; A9270-GY; J2370; J2590; J2795; J7120